=== PATIENT | female | born 1985 ===

== ENCOUNTER 2020-11-21 21:02 | Emergency (ER) | payer OTHER ==
[~2020-11-21] VITALS: Ht 165.1 cm; Wt 90.7 kg
[2020-11-21] MEDS ORDERED: [UNRECOGNIZED DRUG - REMARK] (21:15)
[2020-11-21] MEDS ORDERED: DICLOFENAC SODI75 MG PO (21:32)
== END 2020-11-21 22:48 | disposition home or self-care (01) ==
LOC: ER 21:02
DX: S62.102A Fracture of unspecified carpal bone, left wrist, initial encounter for closed fracture (principal); W18.39XA Other fall on same level, initial encounter; Y93.89 Activity, other specified; Y92.098 Other place in other non-institutional residence as the place of occurrence of the external cause; Y99.8 Other external cause status

== ENCOUNTER 2022-09-16 10:19 | Emergency (ER) | payer OTHER ==
[~2022-09-16] VITALS: Ht 165.1 cm; Wt 90.7 kg
[~2022-09-16 10:19] MED LIST: DICLOFENAC SODI75 MG PO; [UNRECOGNIZED DRUG - REMARK]
== END 2022-09-16 20:47 | disposition home or self-care (01) ==
LOC: ER 10:19
DX: M54.50 Low back pain, unspecified (principal); M51.37 Other intervertebral disc degeneration, lumbosacral region; Z88.8 Allergy status to other drugs, medicaments and biological substances

== ENCOUNTER 2023-02-15 11:07 | Emergency (ER) | payer OTHER ==
[~2023-02-15] VITALS: Ht 165.1 cm; Wt 90.7 kg
[2023-02-15] MEDS ORDERED: VOLTAREN ARTHRI20 GM TOP (13:29)
== END 2023-02-15 13:51 | disposition home or self-care (01) ==
LOC: ER 11:07
DX: S93.602A Unspecified sprain of left foot, initial encounter (principal); X58.XXXA Exposure to other specified factors, initial encounter; Y93.9 Activity, unspecified; Y92.9 Unspecified place or not applicable; Y99.9 Unspecified external cause status; Z88.8 Allergy status to other drugs, medicaments and biological substances